=== PATIENT | female | born 1985 | race Caucasian/White ===

== ENCOUNTER 2016-11-06 13:14 | Emergency (ER) | payer BC ==
[~2016-11-06] VITALS: Ht 162.6 cm; Wt 115.0 kg
[~2016-11-06 13:14] MED LIST: CEPALOZ SUCK-ON; IBUP-232 PO
[2016-11-06 13:16] VITALS: BP 130/75; PULSE 75; RESP 12; TEMP 97.7; O2SAT 96
--- NOTE | 2016-11-06 15:00 | PD ---
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 Patient states that she is changing her tampon every hour. She states she has never had anything like this in the past. Patient does typically have irregular menses. She did take the day after pill 2 weeks ago. She had a light cycle and then it began again. She states it has never done this. Denies any significant pain. She is having some menstrual cramping. No urinary symptoms. No nausea, vomiting, diarrhea. Patient has never been in the past. Does not suspect that she was recently . She has no fever or chills. No other symptoms to report. PFSH Past Medical History Anxiety: Yes ?: Unknown Social History Alcohol Use: No Tobacco Use: No Substance Use: No Allergies-Medications (Allergen,Severity, Reaction): Coded Allergies: No Known Allergies (Unverified , 07/18/15) Reported Meds & Prescriptions Reported Meds & Active Scripts Active Motrin (Ibuprofen) 600 Mg Tab 600 Mg PO QID GIVE WITH FOOD Cepacol (Benzocaine/Menthol) 1 Lozg Lozg 1 Lozg SUCK-ON Q2HR PRN Review of Systems Except as stated in HPI: all other systems reviewed are Neg Physical Exam Narrative GENERAL: Obese female patient, lying in bed, in no acute distress SKIN: Warm and dry. HEAD: Atraumatic. Normocephalic. EYES: Pupils equal and round. No scleral icterus. No injection or drainage. ENT: No nasal bleeding or discharge. Mucous membranes pink and moist. NECK: Trachea midline. No JVD. CARDIOVASCULAR: Regular rate and rhythm. No murmur appreciated. RESPIRATORY: No accessory muscle use. Clear to auscultation. Breath sounds equal bilaterally. GASTROINTESTINAL: Abdomen soft, non-tender, nondistended. Hepatic and splenic margins not palpable. MUSCULOSKELETAL: No obvious deformities. No clubbing. No cyanosis. No edema. NEUROLOGICAL: Awake and alert. No obvious cranial nerve deficits. Motor grossly within normal limits. Normal speech. PSYCHIATRIC: Appropriate mood and affect; insight and judgment normal. Data Data Last Documented VS Vital Signs Date Time Temp Pulse Resp B/P Pulse Ox O2 Delivery O2 Flow Rate FiO2 11/06/16 13:16 97.7 75 12 130/75 96 Room Air Orders Urinalysis - C+S If Indicated (11/06/16 14:59) Ed Urine Pregnancytest Poc (11/06/16 14:59) Complete Blood Count With Diff (11/06/16 14:59) Labs Laboratory Tests Test 11/06/16 15:15 White Blood Count 9.9 TH/MM3 Red Blood Count 5.51 MIL/MM3 Hemoglobin 14.8 GM/DL Hematocrit 43.8 % Mean Corpuscular Volume 79.5 FL Mean Corpuscular Hemoglobin 26.8 PG Mean Corpuscular Hemoglobin 33.7 % Concent Red Cell Distribution Width 13.9 % Platelet Count 363 TH/MM3 Mean Platelet Volume 7.5 FL Neutrophils (%) (Auto) 61.4 % Lymphocytes (%) (Auto) 28.1 % Monocytes (%) (Auto) 9.0 % Eosinophils (%) (Auto) 1.1 % Basophils (%) (Auto) 0.4 % Neutrophils # (Auto) 6.1 TH/MM3 Lymphocytes # (Auto) 2.8 TH/MM3 Monocytes # (Auto) 0.9 TH/MM3 Eosinophils # (Auto) 0.1 TH/MM3 Basophils # (Auto) 0.0 TH/MM3 CBC Comment DIFF FINAL Differential Comment Urine Color YELLOW Urine Turbidity CLEAR Urine pH 7.0 Urine Specific [place] 1.019 Urine Protein NEG mg/dL Urine Glucose (UA) NEG mg/dL Urine Ketones NEG mg/dL Urine Occult Blood LARGE Urine Nitrite NEG Urine Bilirubin NEG Urine Urobilinogen LESS THAN 2.0 MG/DL Urine Leukocyte Esterase TRACE Urine RBC /hpf Urine WBC 4 /hpf Urine Squamous Epithelial 3 /hpf Cells Urine Calcium Oxalate Crystals RARE /hpf Urine Mucus FEW /lpf Microscopic Urinalysis Comment CULT NOT INDICATED MDM Medical Decision Making Medical Screen Exam Complete: Yes Emergency Medical Condition: Yes Medical Record Reviewed: Yes Differential Diagnosis Menses versus missed versus dysmenorrhea versus dysfunctional uterine bleeding Narrative Course 31-year-old female presents to the emergency department for evaluation. Patient appears stable. I've offered to do a CBC to check patient's hemoglobin as well as a urine and UPT. Urine is needed. Laboratory Tests Test 11/06/16 15:15 White Blood Count 9.9 TH/MM3 Red Blood Count 5.51 MIL/MM3 Hemoglobin 14.8 GM/DL Hematocrit 43.8 % Mean Corpuscular Volume 79.5 FL Mean Corpuscular Hemoglobin 26.8 PG Mean Corpuscular Hemoglobin 33.7 % Concent Red Cell Distribution Width 13.9 % Platelet Count 363 TH/MM3 Mean Platelet Volume 7.5 FL Neutrophils (%) (Auto) 61.4 % Lymphocytes (%) (Auto) 28.1 % Monocytes (%) (Auto) 9.0 % Eosinophils (%) (Auto) 1.1 % Basophils (%) (Auto) 0.4 % Neutrophils # (Auto) 6.1 TH/MM3 Lymphocytes # (Auto) 2.8 TH/MM3 Monocytes # (Auto) 0.9 TH/MM3 Eosinophils # (Auto) 0.1 TH/MM3 Basophils # (Auto) 0.0 TH/MM3 CBC Comment DIFF FINAL Differential Comment Urine Color YELLOW Urine Turbidity CLEAR Urine pH 7.0 Urine Specific [place] 1.019 Urine Protein NEG mg/dL Urine Glucose (UA) NEG mg/dL Urine Ketones NEG mg/dL Urine Occult Blood LARGE Urine Nitrite NEG Urine Bilirubin NEG Urine Urobilinogen LESS THAN 2.0 MG/DL Urine Leukocyte Esterase TRACE Urine RBC /hpf Urine WBC 4 /hpf Urine Squamous Epithelial 3 /hpf Cells Urine Calcium Oxalate Crystals RARE /hpf Urine Mucus FEW /lpf Microscopic Urinalysis Comment CULT NOT INDICATED Lab work is without acute concern. Results are discussed with the patient. She is reassured this is likely an irregular menstrual cycle secondary to the day after pill. She is advised follow-up with gynecology. She'll be discharged at this time. 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
[2016-11-06 15:29] LABS: AUTOMATED NEUTROPHIL # 6.1 TH/MM3 (1.8-7.7); BASOPHIL % 0.4 % (0.0-2.0); EOSINOPHIL # 0.1 TH/MM3 (0-0.4); EOSINOPHIL % 1.1 % (0.0-4.0); HEMATOCRIT 43.8 % (35.0-46.0); HEMO FLAGS DIFF FINAL; LYMPH % 28.1 % (9.0-44.0); LYMPHOCYTE # 2.8 TH/MM3 (1.0-4.8); MEAN CELL VOLUME 79.5 FL (80.0-100.0); MEAN CORPUSCULAR HEMOGLOBIN 26.8 PG (27.0-34.0); MEAN CORPUSCULAR HGB CONC 33.7 % (32.0-36.0); NEUT % 61.4 % (16.0-70.0); PLATELET COUNT 363 TH/MM3 (150-450); RED BLOOD COUNT 5.51 MIL/MM3 (4.00-5.30); RED CELL DISTRIBUTION WIDTH 13.9 % (11.6-17.2); WHITE BLOOD COUNT 9.9 TH/MM3 (4.0-11.0)
[2016-11-06 15:43] LABS: BLOOD, URINE LARGE (NEG); CALCIUM OXALATE CRYSTALS,URINE RARE /hpf; COMMENT (UR) CULT NOT INDICATED; CULTURE IF INDICATED CULT NOT INDICATED; GLUCOSE,URINE NEG (NEG); KETONE, URINE NEG (NEG); MUCUS URINE FEW /lpf (OCC); NITRITE,URINE NEG (NEG); SQUAMOUS EPITHELIAL CELL URINE 3 /hpf (0-5); URINE COLOR YELLOW (YELLW/STRAW)
== END 2016-11-06 17:09 | disposition home or self-care (01) ==
LOC: NETRI 13:14
DX: N92.6 Irregular menstruation, unspecified (principal)
CPT/HCPCS: 81001; 85025; 99283

== ENCOUNTER 2018-01-06 21:14 | Emergency (ER) | payer BC ==
[~2018-01-06] VITALS: Ht 162.6 cm; Wt 109.1 kg
[2018-01-06 21:18] VITALS: BP 133/83; PULSE 95; RESP 18; TEMP 97.6; O2SAT 100
[2018-01-06 23:32] VITALS: BP 111/79; PULSE 74; RESP 18; TEMP 98.3; O2SAT 97
[2018-01-07] MEDS ORDERED: CYCL10TA PO (00:15)
--- NOTE | 2018-01-07 00:15 | PD ---
HPI Chief Complaint: Back/ Neck Pain or Injury Time Seen by Provider: 23:38 Travel History International Travel<30 days: No Contact w/Intl Traveler<30days: No Traveled to known affect area: No History of Present Illness HPI Patient is a 32-year-old female presenting to emerge from for evaluation of left lower back pain that radiates down the back of her left leg. Patient states it started yesterday, there is no preceding injury or trauma. She states is worse when she sitting in certain position. She reports the pain is a 5 out of 10. She denies any numbness or weakness, she denies any bladder or bowel incontinence, no saddle paresthesia. Symptom onset was gradual, symptom severity is mild. There are no alleviating factors as patient has not taken anything to alleviate her pain. PFSH Past Medical History Medical History: Denies Significant Hx Anxiety: Yes Tetanus Vaccination: Unknown Influenza Vaccination: No ?: Not LMP: just went off Past Surgical History Other Surgery: Yes (L pinky toe repair 12/2016) Social History Alcohol Use: Yes (occaisonally) Tobacco Use: No Substance Use: No Allergies-Medications (Allergen,Severity, Reaction): Coded Allergies: No Known Allergies (Unverified , 07/18/15) Reported Meds & Prescriptions Reported Meds & Active Scripts Active Motrin (Ibuprofen) 600 Mg Tab 600 Mg PO QID GIVE WITH FOOD Cepacol (Benzocaine/Menthol) 1 Lozg Lozg 1 Lozg SUCK-ON Q2HR PRN Review of Systems Except as stated in HPI: all other systems reviewed are Neg Musculoskeletal: Positive: Pain Physical Exam Narrative GENERAL: Overweight, well-developed, alert female. Presenting in no acute distress. SKIN: Warm and dry. HEAD: Normocephalic. EYES: No scleral icterus. No injection or drainage. NECK: Supple, trachea midline. No JVD or lymphadenopathy. CARDIOVASCULAR: Regular rate and rhythm without murmurs, gallops, or rubs. RESPIRATORY: Breath sounds equal bilaterally. No accessory muscle use. GASTROINTESTINAL: Abdomen soft, non-tender, nondistended. MUSCULOSKELETAL: No cyanosis, or edema. Full range of motion in bilateral lower extremities, 2+ dorsalis pedal pulses. Mildly tender to palpation over left SI joint. BACK: Nontender without obvious deformity. No CVA tenderness. Data Data Last Documented VS Vital Signs Date Time Temp Pulse Resp B/P (MAP) Pulse Ox O2 Delivery O2 Flow Rate FiO2 01/06/18 23:32 98.3 74 18 111/79 (90) 97 Room Air MDM Medical Decision Making Medical Screen Exam Complete: Yes Emergency Medical Condition: Yes Interpretation(s) Vital Signs Date Time Temp Pulse Resp B/P (MAP) Pulse Ox O2 Delivery O2 Flow Rate FiO2 01/06/18 23:32 98.3 74 18 111/79 (90) 97 Room Air 01/06/18 21:18 97.6 95 18 133/83 (100) 100 Differential Diagnosis Radiculopathy versus strain versus spasm versus sciatica versus other Narrative Course Patient is a 32-year-old female presenting with left lower back pain started without any preceding injury or trauma. Patient is well-appearing, she is neural neurologically intact with no focal deficits. Patient has a prescription for etodolac from a previous injury a few weeks ago. She is encouraged to take this as needed and as directed. She will be provided with a prescription for a muscle relaxer, she was encouraged to perform gentle range of motion exercises and apply warm heat. She is encouraged to follow-up with her primary doctor or return to emergency department for any new worsening symptoms. Patient verbalized understanding of these instructions. Patient stable for discharge. Diagnosis Primary Impression: Sciatica Qualified Codes: M54.32 - Sciatica, left side Referrals: Primary Care Physician Patient Instructions: General Instructions, Sciatica (ED) Additional Instructions: Follow-up with your primary doctor Continue gentle range of motion exercises, apply warm heat to the affected area , avoid bed rest Take medications as needed and as directed Return to emergency department for any new or worsening symptoms Med/Other Pt SpecificInfo: Prescription(s) given Scripts Cyclobenzaprine (Flexeril) 10 Mg Tab 10 MG PO TID Y for MUSCLE SPASM, #30 TAB 0 Refills Prov: Helga Hayden 01/07/18 Disposition: 01 DISCHARGE HOME Condition: Stable Helga Hayden Jan 07, 2018 00:15
== END 2018-01-07 01:09 | disposition home or self-care (01) ==
LOC: NED 21:14 → NEPD 01-07 01:09
DX: M54.42 Lumbago with sciatica, left side (principal)
CPT/HCPCS: 99283